=== PATIENT | female | born 1960 | race Caucasian/White ===

== ENCOUNTER 2016-11-14 10:11 | Observation (INO) | payer BC ==
[~2016-11-14 10:11] MED LIST: Buffered Lidocaine 0.9% SYRIN* 5 ML/SYR SYRINGE INTRADERM ONE; Dexamethasone TAB* 4 MG PO ONE; Famotidine IV* 10 MG/ML 2 ML (20 mg) IV ONE; Midazolam* 1 MG/ML 2 ML VIAL (2 MG) ONE; fentaNYL* 50 MCG/ML 2 ML VIAL (100 MCG VIAL) ONE
[2016-11-14] MEDS ORDERED: Famotidine IV* 10 MG/ML 2 ML (20 mg) ONE (10:21)
[2016-11-14] MEDS ORDERED: Dexamethasone IV* 4 MG/ML 1 ML (4 MG) ONE (10:21)
[2016-11-14] MEDS ORDERED: Buffered Lidocaine 0.9% SYRIN* 5 ML/SYR SYRINGE ONE (10:22)
[2016-11-14] MEDS ORDERED: ceFAZolin 2 GM PREMIX (*) 50 ML IVPB ONE (10:22)
[2016-11-14] MEDS ORDERED: Dexamethasone TAB* 4 MG ONE (10:34)
[2016-11-14] MEDS ORDERED: Cisatracurium* 2 MG/ML MDV 5 ML ONE (10:49)
[2016-11-14] MEDS ORDERED: Lidocaine 2% PF * 5 ML VIAL ONE (11:09)
[2016-11-14] MEDS ORDERED: Phenylephrine IV* 40 MCG/ML 10 ML SYRINGE ONE (11:09)
[2016-11-14] MEDS ORDERED: Propofol* 10 MG/ML 20 ML BTL IV PUSH ONE (11:09)
[2016-11-14] MEDS ORDERED: Succinylcholine* 20 MG/ML 10 ML VIAL ONE (11:09)
[2016-11-14] MEDS ORDERED: PROCHLORPERAZINE INJ 5 MG/ML 2 ML VIAL IV PRN (11:11)
[2016-11-14] MEDS ORDERED: HYDROmorphone INJ* 1 MG/ML CARPUJECT SYRINGE IV PRN (11:11)
[2016-11-14] MEDS ORDERED: fentaNYL* 50 MCG/ML 2 ML VIAL (100 MCG VIAL) IV PRN (11:11)
[2016-11-14] MEDS ORDERED: Acetaminophen TAB* 325 MG PO PRN (11:11)
[2016-11-14] MEDS ORDERED: DiMENhydriNATE IV* 50 MG/ML VIAL IV PUSH PRN (11:11)
[2016-11-14] MEDS ORDERED: Scopolamine 1.5 mg* PATCH TRANSDERM PRN (11:11)
[2016-11-14] MEDS ORDERED: Phenylephrine INJ* 50 MG in NS 0.9% 250 ML* 245 ML IV PRN (11:11)
[2016-11-14] MEDS ORDERED: Ondansetron INJ* 2 MG/ML VIAL ONE (11:19)
[2016-11-14] MEDS ORDERED: Ketorolac INJ* 30 MG/ML 1 ML VIAL ONE (11:19)
[2016-11-14] MEDS ORDERED: Ondansetron INJ* 2 MG/ML VIAL IV PRN (11:41)
[2016-11-14] MEDS ORDERED: Zolpidem TAB* 10 MG PO PRN (11:43)
[2016-11-14] MEDS ORDERED: Mouth Piece, Nicotine* 1 EACH CARTRIDGE INH PRN (11:45)
[2016-11-14] MEDS ORDERED: Nicotine Inhaler* 10 MG AMP INH PRN (11:45)
[2016-11-14] MEDS: oxyCODONE/Acetamin 5/325 MG* TAB PO PRN ×3 (14:07→22:35)
[2016-11-14] MEDS: Nicotine PATCH 21 MG/24 HR* PATCH TRANSDERM SCH (14:13)
--- NOTE | 2016-11-14 15:06 | RAD ---
INDICATION: Decompressive lumbar laminectomy L4-L5 COMPARISON: None TECHNIQUE/FINDINGS: A single crosstable lateral view shows a curved hemostat projected over the posterior soft tissues at the L4 vertebral body level with a probe projected at the L3-L4 disc space
[2016-11-14] MEDS: Insulin LISPRO* 1 UNITS UNIT SUBCUT SCH (21:31)
[2016-11-15] MEDS: oxyCODONE/Acetamin 5/325 MG* TAB PO PRN ×2 (04:06→08:15)
[2016-11-15] MEDS: Insulin LISPRO* 1 UNITS UNIT SUBCUT SCH (07:41)
--- NOTE | 2016-11-15 08:00 | PN ---
Progress Note - Progress Note Date of Service: 11/15/16 SOAP: Subjective: [S/p decompressive lumbar laminectomy L3-4, POD #1. Feeling well this morning although complains of some incisional soreness. Is ambulating independently. Denies headache, nausea, vomiting and new numbness or weakness in the lower extremities. ] Objective: [ Vital Signs: Temp Pulse Resp BP Pulse Ox 97.9 F 61 16 110/53 97 11/15/16 04:00 11/15/16 04:00 11/15/16 06:01 11/15/16 04:00 11/15/16 04:00 General: Alert and oriented. No distress. Neuro: Motor and sensory intact. Extremities: Full ROM. Incision: Intact with yeny, no swelling or infection. KATTY removed today. KATTY drain output 11/14/16 11/14/16 11/14/16 12:45 17:30 21:10 Output, KATTY #1 15 45 20 11/15/16 11/15/16 00:55 05:45 Output, KATTY #1 3 2 ] Assessment: [Satisfactory post-op course. ] Plan: [1. Discharge home today. 2. Discharge instructions discussed with the patient.
[2016-11-15] MEDS: Nicotine PATCH 21 MG/24 HR* PATCH TRANSDERM SCH (08:09)
[2016-11-15 08:39] VITALS: BP 99/53
[2016-11-15] MEDS ORDERED: BuPROPion XL* 300 MG TAB.XL PO SCH (09:00)
[2016-11-15] MEDS ORDERED: Nicotine Patch Removal NOTE PATCH OFF SCH (21:00)
[2016-11-17] MEDS ORDERED: Scopolomine PATCH Remove* 1 NOTE MISC PATCH OFF ONE (11:12)
--- NOTE | 2016-11-18 05:10 | DS ---
DISCHARGE SUMMARY: DATE OF ADMISSION: 11/14/16 DATE OF DISCHARGE: 11/15/16 ATTENDING PHYSICIAN: Dr. Cadet * (DICTATED BY MARINO MORRISON) DISCHARGE DIAGNOSES: 1. Lumbar stenosis, L4-5. 2. Diabetes, type 2. SPECIAL PROCEDURES: Decompressive lumbar laminectomy, L4-5. HOSPITAL COURSE: This 56-year-old female was seen in office with symptomatic lumbar stenosis, but has failed to improve with several years of conservative treatment. Surgical treatment was discussed with the patient and she opted for this surgery. On the day of admission, she was taken to surgery, where under general anesthesia, a decompressive lumbar laminectomy at L4-5 operation was carried out. Postoperatively, she is feeling well. Pain was well controlled with oral pain medications. She was eating, drinking, and voiding without difficulty. Preoperative pain was improved. On the first postoperative day, the KATTY wound drain was removed and the patient was discharged home to the care of family. DISCHARGE INSTRUCTIONS: Wound care and activity level were discussed with the patient and information provided. FOLLOWUP: She will be seen in office in approximately 7 to 10 days. DISCHARGE MEDICATIONS: None. MARINO MORRISON [id number]/[facility] #: [id number] [place]
--- NOTE | 2016-11-22 15:33 | OP ---
DATE OF OPERATION: 11/14/16 - ROOM #347 DATE OF : 58 SURGEON: Cyrus Cadet MD AGRONOMY RESEARCH MANAGER: MARINO Curiel ANESTHESIOLOGIST: Melissa Bosch MD ANESTHESIA: General. PRE-OP DIAGNOSIS: Lumbar spinal stenosis, L4-L5. POST-OP DIAGNOSIS: Lumbar spinal stenosis, L4-L5. OPERATIVE PROCEDURE: Decompressive lumbar laminectomy, L4-5, with bilateral foraminotomies, L4-5. DESCRIPTION OF PROCEDURE: After satisfactory general anesthesia was obtained, the patient was placed on the operating table in the prone position with the chest supported on the Derik frame and the back slightly flexed. The lumbar region was then clipped, prepped, and draped in a sterile manner for lumbar laminectomy and a skin incision outlined from L4 to L5. This incision was infiltrated with 1% Xylocaine with epinephrine, after which it was turned down sharply to the level of the lumbar fascia. The fascia was divided along the spinous processes from L4 to L5 and the paraspinal musculature stripped away from these posterior elements. An intraoperative x-ray was obtained verifying proper interspace localization, after which a decompression was carried out by removing the spinous process of L4 and the superior aspect of spinous process of L5 with the Philomena electric distribution checker and Leksell rongeur. The inferior aspect of the L4 lamina and medial aspect of the facet complex was then thinned out with the Mid[place] Bartolo drill and the decompression carried out superiorly until the attachment of ligamentum flavum was taken down. Thickened ligamentum flavum as well as hypertrophy of facet joints were then removed with the Kerrison. This was extended laterally and inferiorly until both L5 nerve roots were noted to be free in their course. After assuring adequate hemostasis, the wound was thoroughly irrigated after which a piece of Gelfoam was placed over the laminectomy defect. A drain was placed in the epidural space and tunneled out toward the left side. The fascia was then reapproximated with 0 Vicryl suture. The subcutaneous tissue was closed with 3-0 Vicryl suture and the skin closed with skin clips. The estimated blood loss was less than 50 cc, and the final sponge, padding, and needle counts were correct. The patient was taken to the recovery room, extubated, and in stable condition. [id number]/[facility] #: [id number] [facility]
== END 2016-11-15 09:20 | disposition home or self-care (01) ==
LOC: OR 10:11 → SSU 11:41
PROVIDERS: ADMIT Neurological Surgery; ATTEND Neurological Surgery
DX: M48.06 Spinal stenosis, lumbar region (principal); E11.9 Type 2 diabetes mellitus without complications; Z79.84 Long term (current) use of oral hypoglycemic drugs; M54.9 Dorsalgia, unspecified
CPT/HCPCS: 72100; 96374; 96375; A9270-GY; G0378; J0330; J0690; J1100; J1885; J2250; J2405; J2704; J3010; J8540

== ENCOUNTER 2018-07-22 10:23 | Inpatient (IN) | payer BC ==
[~2018-07-22 10:23] MED LIST changes: -Buffered Lidocaine 0.9% SYRIN* 5 ML/SYR SYRINGE INTRADERM ONE; +Buffered Lidocaine 1% SYRIN* 1 ML/SYRINGE INTRADERM ONE; -Dexamethasone TAB* 4 MG PO ONE; +Famotidine IV* 10 MG/ML 2 ML (20 mg) ONE; +Lactated Ringers 1000 ML Bag* 1,000 ML IV SCH; -Midazolam* 1 MG/ML 2 ML VIAL (2 MG) ONE; +ceFAZolin 2 GM PREMIX in ORs 2 GM/50 ML BAG ONE; -fentaNYL* 50 MCG/ML 2 ML VIAL (100 MCG VIAL) ONE
[2018-07-22] MEDS ORDERED: Propofol* 10 MG/ML 20 ML BTL ONE (11:05)
[2018-07-22] MEDS ORDERED: Phenylephrine 10 MG/ML VIAL* 1 ML VIAL ONE (11:05)
[2018-07-22] MEDS ORDERED: fentaNYL* 50 MCG/ML 2 ML VIAL (100 MCG VIAL) ONE (11:05)
[2018-07-22] MEDS ORDERED: Ondansetron INJ* 2 MG/ML VIAL ONE (11:05)
[2018-07-22] MEDS ORDERED: Dexamethasone IV* 4 MG/ML 1 ML (4 MG) ONE (11:05)
[2018-07-22] MEDS ORDERED: Lidocaine 2% PF * 5 ML VIAL ONE (11:05)
[2018-07-22] MEDS ORDERED: Midazolam* 1 MG/ML 5 ML VIAL (5 MG) ONE (11:06)
[2018-07-22] MEDS ORDERED: KETAMINE HCL* 50 MG/ML 10 ML VIAL ONE (11:06)
[2018-07-22] MEDS ORDERED: Lidocain 1% EPI 1:100,000 * 30 ML MDV ONE (11:55)
[2018-07-22] MEDS ORDERED: Thrombin 5,000 UNITS* 1 APPLIC KIT - topical use - TOPICAL ONE (11:55)
[2018-07-22] MEDS ORDERED: Bacitracin INJECTION* 50,000 UNITS ONE (11:56)
[2018-07-22] MEDS ORDERED: Cisatracurium* 2 MG/ML MDV 5 ML ONE (11:57)
[2018-07-22] MEDS ORDERED: Artificial Tear OPHTH.OINT* 3.5 GM ONE (11:57)
[2018-07-22] MEDS ORDERED: HYDROmorphone INJ1* 1 MG/ML SYRINGE ONE (15:27)
[2018-07-22] MEDS ORDERED: Ondansetron INJ* 2 MG/ML VIAL IV PRN ×2 (15:51→15:55)
[2018-07-22] MEDS ORDERED: Magnesium Hydroxide LIQ* 30 ML UDC PO PRN (15:51)
[2018-07-22] MEDS ORDERED: Naloxone* 0.4 MG/ML 1 ML VIAL IV PRN (15:55)
[2018-07-22] MEDS ORDERED: Lactated Ringers 1000 ML Bag* 1,000 ML IV SCH (16:00)
[2018-07-22] MEDS ORDERED: fentaNYL* 50 MCG/ML 5 ML VIAL (250 MCG VIAL) ONE (16:05)
[2018-07-22] MEDS: fentaNYL* 50 MCG/ML 2 ML VIAL (100 MCG VIAL) IV PRN ×5 (16:05→17:14)
[2018-07-22] MEDS ORDERED: oxyCODONE/Acetamin 5/325 MG* TAB ONE (16:57)
[2018-07-22] MEDS: oxyCODONE/Acetamin 5/325 MG* TAB PO PRN ×2 (16:57→21:00)
[2018-07-22] MEDS: Insulin LISPRO* 1 UNITS UNIT SUBCUT SCH ×2 (17:58→21:11)
[2018-07-22] MEDS: Pregabalin CAP(*) 100 MG PO SCH (21:00)
[2018-07-22] MEDS: Cyclobenzaprine TAB* 10 MG PO PRN (23:00)
[2018-07-22] MEDS: HYDROmorphone INJ1* 1 MG/ML SYRINGE IV PRN (23:45)
[2018-07-23] MEDS: oxyCODONE/Acetamin 5/325 MG* TAB PO PRN ×3 (01:24→12:13)
[2018-07-23] MEDS: HYDROmorphone INJ1* 1 MG/ML SYRINGE IV PRN ×4 (04:23→21:47)
[2018-07-23] MEDS: Pregabalin CAP(*) 100 MG PO SCH ×2 (07:44→21:47)
[2018-07-23] MEDS: Insulin LISPRO* 1 UNITS UNIT SUBCUT SCH ×4 (07:55→21:42)
--- NOTE | 2018-07-23 08:04 | PN ---
Progress Note - Progress Note Date of Service: 07/23/18 SOAP: Subjective: [S/p L4-5 decompression and fusion with interbody spacer POD #1 Feeling sore this morning. Ambulating independently. Denies lower extremity pain, numbness. Denies headache, nausea Pain controlled with PO and IV medications ] Objective: [ Vital Signs: Temp Pulse Resp BP Pulse Ox 99.1 F 61 18 106/61 95 07/23/18 07:46 07/23/18 07:46 07/23/18 07:46 07/23/18 07:46 07/23/18 07:46 General: Alert and recumbent in bed Neuro: Motor and sensory intact Wound drain output 07/22/18 07/22/18 07/23/18 17:16 21:44 01:29 Output, KATTY #1 35 80 10 07/23/18 06:12 Output, KATTY #1 40 ] Assessment: [S/p L4-5 decompression and fusion, stable. Wound drain requires further monitoring and will remain in place.] Plan: [1. Pain management 2. Encourage OOB and ambulation]
--- NOTE | 2018-07-23 10:55 | OP ---
DATE OF OPERATION: 07/22/18 - ROOM #340 DATE OF : 58 PRIMARY SURGEON: Cyrus Cadet MD. LINEWORKER: MARINO Curiel. ANESTHESIA: General. PRE-OP DIAGNOSIS: Lumbar spondylolisthesis L4-5. POST-OP DIAGNOSIS: Lumbar spondylolisthesis L4-5. OPERATIVE PROCEDURES: Redo decompressive lumbar laminectomy, L4-5 with posterior lumbar interbody fusion L4-5, placement of biomechanical device L4-5, posterior instrumentation L4-5 with stereotactic navigation and microdissection. DESCRIPTION OF PROCEDURE: After satisfactory general anesthesia was obtained, the patient was placed on the Brendan table in the prone position. The lumbar region was then clipped, prepped and draped in a sterile manner for lumbar exposure and a skin incision extended along a previous L4-5 exposure incision slightly more superiorly and inferiorly. This incision was then infiltrated with 1% Xylocaine with epinephrine, after which it was turned down sharply to the level of the fascia and scar tissue. The fascia and scar tissue were then divided along the spinous processes of L2 down to the sacrum. The spinous processes of L3, L4, and L5 had been removed at the time of her previous surgery. Utilizing the monopolar cautery and curettes, the extent of the prior decompression was dissected free. At this point of the procedure, the navigation reference array was attached to the sacrum and the O-arm intraoperative CT scan were brought into the field and a spin acquisition performed. This enabled identification of the landmarks to include the extent of the previous laminectomies. The next step of the procedure was placement of pedicle screws at L4 and L5. This was initially done only left-sided L4 where utilizing stereotactic navigation a 6.5 mm in diameter 40 mm length screw was placed at L4 on the left side. An identical screw was then placed on the right- side at L4. On the left-side at L5, a 30 mm 6.5 mm in diameter screw was placed and on the left side a 35 mm 6.5 in diameter screw was placed. Attention was then returned to the canal exposure. A plane was developed between the ligamentum flavum connecting L3 and L4 to the remaining portion of the L4 spinous process. The remaining portion of the L4 spinous process on lamina that had been left at the time of the previous decompression was then removed with a Kerrison. There was noted to be a marked scar tissue adherent to the dura. At this point of the procedure, the operating microscope was brought into the field to assist with dissecting scar from dura. Utilizing microdissection, the scar was dissected free from overlying bone. The normal dura was encountered above and below the scar tissue. This enabled identification of a plane between the scar and dura and underlying disk. The L4 nerve root was noted to be free in its course projecting out laterally. The disk was then opened with an #11 blade knife and the disk space cleared of any loose disk material using pituitary forceps and curettes. Interbody ewdin were then used in a progressive manner beginning at 7 mm and extending up to 10 mm. Following the use of the shaver, a Secure-24tronic Elevate expandable cage 8 mm in height and 23 mm in depth was sucked into the interspace under stereotactic navigation. It was then expanded up to 10 mm. The rods were then connected to the previously placed screws. A second spin was then performed with the O-arm and this spin showed that both the interbody graft and pedicle screws were in satisfactory position. The wound was then irrigated after which piece of Gelfoam was placed over the laminectomy defects. A Harrison drain was placed in the epidural space and tunneled out toward the right side. The fascia was then reapproximated with 0 Vicryl suture. The subcutaneous tissues closed with 3-0 Vicryl suture and the skin closed with skin clips. The estimated blood loss was 100 mL and final sponge, padding, and needle counts were correct. The patient was taken to the recovery room, extubated, and in stable condition. [id number]/[facility] #: [id number] [place]
[2018-07-23] MEDS: oxyCODONE TAB* 5 MG TAB PO PRN ×2 (14:59→19:46)
[2018-07-23] MEDS: Acetaminophen TAB* 325 MG PO PRN (14:59)
[2018-07-23] MEDS: Cyclobenzaprine TAB* 10 MG PO PRN (18:36)
[2018-07-24] MEDS: HYDROmorphone INJ1* 1 MG/ML SYRINGE IV PRN (03:11)
[2018-07-24] MEDS: oxyCODONE TAB* 5 MG TAB PO PRN ×4 (06:10→18:04)
[2018-07-24] MEDS: Insulin LISPRO* 1 UNITS UNIT SUBCUT SCH ×4 (07:34→20:40)
--- NOTE | 2018-07-24 07:46 | PN ---
Progress Note - Progress Note Date of Service: 07/24/18 SOAP: Subjective: [S/p L4-5 decompression and fusion with interbody spacer POD #2 Reports feeling sore this morning Was taking 30 mg Oxycontin in AM and 40 mg HS pre-op Pain controlled currently with Oxycodone and dilaudid Denies lower extremity numbness, pain Denies headache, nausea Eating and drinking well. ] Objective: [ Vital Signs: Temp Pulse Resp BP Pulse Ox 98.8 F 57 16 100/60 96 07/24/18 03:22 07/24/18 03:22 07/24/18 06:10 07/24/18 03:22 07/24/18 03:22 General: Alert, comfortable supine, NAD Neuro: Motor and sensory intact Incision: Intact, drain functioning well Wound drain output 07/22/18 07/22/18 07/23/18 17:16 21:44 01:29 Output, KATTY #1 35 80 10 07/23/18 07/23/18 07/23/18 06:12 14:22 16:59 Output, KATTY #1 40 75 20 07/23/18 07/24/18 07/24/18 22:16 03:22 06:00 Output, KATTY #1 40 40 20 ] Assessment: [Drain continues to collect large volume fluid, will remain in place. ] Plan: [1. Discontinue dilaudid 2. Add Oxycodone ER 20 mg, Oxycodone 10 mg for break through pain 3. Encourage OOB and ambulation]
[2018-07-24] MEDS: Cyclobenzaprine TAB* 10 MG PO PRN ×3 (07:59→20:43)
[2018-07-24] MEDS: Pregabalin CAP(*) 100 MG PO SCH ×2 (07:59→20:43)
[2018-07-24] MEDS: Acetaminophen TAB* 325 MG PO PRN (07:59)
[2018-07-24] MEDS: oxyCODONE SR TAB(*) 20 MG TAB.SR PO SCH (20:43)
[2018-07-25] MEDS: oxyCODONE TAB* 5 MG TAB PO PRN ×2 (00:17→07:21)
[2018-07-25 07:53] VITALS: BP 101/64
[2018-07-25] MEDS: Insulin LISPRO* 1 UNITS UNIT SUBCUT SCH (07:58)
--- NOTE | 2018-07-25 08:19 | PN ---
Progress Note - Progress Note Date of Service: 07/25/18 SOAP: Subjective: [S/p L4-5 decompression and fusion with interbody spacer, POD #3 Pain better controlled overnight after adding Oxycodone ER 20 mg Ambulating independently Denies headache, nausea ] Objective: [ Vital Signs: Temp Pulse Resp BP Pulse Ox 98.7 F 71 15 101/64 94 07/25/18 07:44 07/25/18 07:44 07/25/18 07:44 07/25/18 07:44 07/25/18 07:44 General: Alert, comfortable supine in bed Neuro: Motor and sensory intact Incision: intact with yeny. No swelling, erythema. Drain discontinued today without complication. Wound drain output 07/22/18 07/22/18 07/23/18 17:16 21:44 01:29 Output, KATTY #1 35 80 10 07/23/18 07/23/18 07/23/18 06:12 14:22 16:59 Output, KATTY #1 40 75 20 07/23/18 07/24/18 07/24/18 22:16 03:22 06:00 Output, KATTY #1 40 40 20 07/24/18 07/24/18 07/24/18 09:52 14:13 18:39 Output, KATTY #1 40 30 30 07/24/18 07/25/18 07/25/18 22:09 00:01 04:40 Output, KATTY #1 30 5 20 07/25/18 08:42 Output, KATTY #1 20 ] Assessment: [Satisfactory post-op] Plan: [1. Discharge home today 2. Discharge instructions discussed ]
[2018-07-25] MEDS: oxyCODONE SR TAB(*) 20 MG TAB.SR PO SCH (08:44)
[2018-07-25] MEDS: Pregabalin CAP(*) 100 MG PO SCH (08:44)
[2018-07-25] MEDS: Cyclobenzaprine TAB* 10 MG PO PRN (10:31)
== END 2018-07-25 11:40 | disposition home or self-care (01) | DRG 304 ==
LOC: OR 10:23 → SSU 18:26
PROVIDERS: ADMIT Neurological Surgery; ATTEND Neurological Surgery
PROC: 00NY0ZZ Release Lumbar Spinal Cord, Open Approach (ICD-10-PCS; 2018-07-22)
PROC: 0SG00AJ Fusion of Lumbar Vertebral Joint with Interbody Fusion Device, Posterior Approach, Anterior Column, Open Approach (ICD-10-PCS; principal; 2018-07-22 11:45)
DX: M43.16 Spondylolisthesis, lumbar region (principal); M47.816 Spondylosis without myelopathy or radiculopathy, lumbar region; M51.36 Other intervertebral disc degeneration, lumbar region; M48.061 Spinal stenosis, lumbar region without neurogenic claudication; F17.210 Nicotine dependence, cigarettes, uncomplicated; G89.29 Other chronic pain; E11.43 Type 2 diabetes mellitus with diabetic autonomic (poly)neuropathy; K31.84 Gastroparesis; M79.7 Fibromyalgia; G43.909 Migraine, unspecified, not intractable, without status migrainosus; Z88.5 Allergy status to narcotic agent
CPT/HCPCS: 76000; A9270-GY; C1713; C1776; C9359; J0690; J1100; J1170; J2250; J2405; J2704; J3010

== ENCOUNTER 2021-01-19 06:01 | Inpatient (IN) ==
[~2021-01-19 06:01] MED LIST changes: +Buffered Lidocaine 1% SYRIN 1 ml INTRADERM ONE; -Buffered Lidocaine 1% SYRIN* 1 ML/SYRINGE INTRADERM ONE; -Famotidine IV* 10 MG/ML 2 ML (20 mg) IV ONE; -Famotidine IV* 10 MG/ML 2 ML (20 mg) ONE; -Lactated Ringers 1000 ML Bag* 1,000 ML IV SCH; +Lactated Ringers 1000 ml BAG 1,000 ML IV SCH; -ceFAZolin 2 GM PREMIX in ORs 2 GM/50 ML BAG ONE
[2021-01-19] MEDS ORDERED: ceFAZolin 2 GM PREMIX 2 GM/50 ML BAG ONE (06:51)
[2021-01-19] MEDS ORDERED: Rocuronium 50 mg VIAL 10 mg/ml 5 ml VIAL (50 mg) ONE (06:55)
[2021-01-19] MEDS ORDERED: Propofol 10 MG/ML 20 ML BTL ONE (06:55)
[2021-01-19] MEDS ORDERED: Midazolam 2 mg/2 ml VIAL 1 mg/ml 2 ml VIAL (2 mg) ONE (06:56)
[2021-01-19] MEDS ORDERED: Remifentanil 2 MG VIAL ONE (06:56)
[2021-01-19] MEDS ORDERED: fentaNYL 100 mcg/2 ml 50 MCG/ML VIAL ONE ×3 (06:56→12:40)
[2021-01-19] MEDS ORDERED: Bupivacaine 0.5% SDV PF 30ML VIAL ONE (07:04)
[2021-01-19] MEDS ORDERED: ceFAZolin VIAL VIAL ONE (07:05)
[2021-01-19] MEDS ORDERED: Ketamine HCL 50 mg/ml 10 ml VIAL (500 MG) ONE (07:17)
[2021-01-19] MEDS ORDERED: Dexmedetomidine 200 mcg/2 ml 2 ml VIAL (200 mcg) ONE (07:17)
[2021-01-19] MEDS ORDERED: Dexamethasone IV 4 MG/ML VIAL 1 ml VIAL ONE (07:36)
[2021-01-19] MEDS ORDERED: Glycopyrrolate IV 0.2 MG/ML 1 ML VIAL ONE (08:41)
[2021-01-19] MEDS ORDERED: HYDROmorphone 1 MG/1 ML SYRINGE ONE ×4 (09:32→17:32)
[2021-01-19] MEDS ORDERED: Prochlorperazine 5 mg/ml 2 ml VIAL (10 mg) IV PRN (09:46)
[2021-01-19] MEDS ORDERED: Ondansetron 4 mg VIAL 2 MG/ML 2 ml VIAL IV PRN (09:46)
[2021-01-19] MEDS ORDERED: Naloxone 0.4 mg VIAL 0.4 mg/ml 1 ml VIAL IV PRN (09:46)
[2021-01-19] MEDS ORDERED: DiMENhydriNATE IV 50 mg/ml 1 ml VIAL IV PUSH PRN (09:46)
[2021-01-19] MEDS ORDERED: Propofol 1,000 MG/100 ML BTL ONE (10:21)
[2021-01-19] MEDS ORDERED: Ondansetron 4 mg VIAL 2 MG/ML 2 ml VIAL ONE (11:38)
[2021-01-19] MEDS ORDERED: Acetaminophen IV 1 GM/100ML 100 ML IV ONE (11:43)
[2021-01-19] MEDS: fentaNYL 100 mcg/2 ml 50 MCG/ML VIAL IV PRN ×5 (12:41→13:30)
[2021-01-19] MEDS: HYDROmorphone 1 MG/1 ML SYRINGE IV PRN ×7 (13:03→17:49)
[2021-01-19] MEDS ORDERED: HYDROmorphone 1 MG/1 ML SYRINGE IV SLOW PU ONE (13:54)
[2021-01-19] MEDS ORDERED: Lactated Ringers 1000 ml BAG 1,000 ML IV SCH (14:00)
[2021-01-19] MEDS ORDERED: fentaNYL PATCH 50 MCG/HR 1 PATCH TRANSDERM SCH (20:00)
[2021-01-19] MEDS ORDERED: Senna TAB 8.6 mg TAB PO PRN (20:03)
[2021-01-19] MEDS: HYDROmorphone 1 MG/1 ML SYRINGE IV SLOW PU PRN (22:05)
[2021-01-20] MEDS: HYDROmorphone 1 MG/1 ML SYRINGE IV SLOW PU PRN ×4 (02:59→19:03)
[2021-01-20 04:50] LABS: ABS Basophils 0.1 10^3/ul (0-0.2); ABS Lymphocytes 2.8 10^3/ul (1.0-4.8); ABS Monocytes 1.4 10^3/ul (0-0.8); ABS Neutrophils 6.4 10^3/ul (1.5-7.7); Eosinophil % 0.1 %; Hematocrit 25 % (35-47); Hemoglobin 8.2 g/dL (12.0-16.0); Lymphocyte % 26.4 %; Mean Corpuscular HGB Conc 33 g/dL (31-36); Mean Corpuscular Hemoglobin 29 pg (27-31); Mean Corpuscular Volume 88 fL (80-97); Mean Platelet Volume 7.5 fL (7.4-10.4); Platelet Count 225 10^3/uL (150-450); Red Blood Count 2.86 10^6 /uL (3.70-4.87); Red Cell Distribution Width 13 % (10-15); White Blood Count 10.8 10^3/uL (3.5-10.8)
[2021-01-20 05:17] LABS: Calcium 8.8 mg/dL (8.6-10.3); Potassium 4.8 mmol/L (3.5-5.0); eGFR CKD-EPI 32.7 (>60)
[2021-01-20] MEDS: fentaNYL Patch Check Q Shift NOTE FOLLOW UP SCH ×3 (09:55→18:45)
[2021-01-20] MEDS: Senna TAB 8.6 mg TAB PO SCH (20:13)
[2021-01-20] MEDS: Ondansetron 4 mg VIAL 2 MG/ML 2 ml VIAL IV PRN (20:22)
[2021-01-21] MEDS: HYDROmorphone 1 MG/1 ML SYRINGE IV SLOW PU PRN ×2 (03:24→07:47)
[2021-01-21] MEDS: Ondansetron 4 mg VIAL 2 MG/ML 2 ml VIAL IV PRN (03:24)
[2021-01-21 06:25] LABS: Potassium 4.5 mmol/L (3.5-5.0); eGFR CKD-EPI 37.6 (>60)
[2021-01-21] MEDS: fentaNYL Patch Check Q Shift NOTE FOLLOW UP SCH ×2 (07:29→19:07)
[2021-01-21] MEDS: Magnesium Hydroxide LIQ 30 ML UDC PO PRN ×2 (10:07→20:31)
[2021-01-21] MEDS ORDERED: Dextrose 50% Syringe 50 ml 25 GM/50 ML SYRINGE IV PUSH PRN (18:57)
[2021-01-21] MEDS: Senna TAB 8.6 mg TAB PO SCH (20:32)
[2021-01-21] MEDS ORDERED: Enoxaparin 30 MG/0.3 ML SYR SUBCUT SCH (21:00)
[2021-01-22 05:34] LABS: ABS Basophils 0.1 10^3/ul (0-0.2); ABS Eosinophils 0.1 10^3/ul (0-0.6); ABS Lymphocytes 2.4 10^3/ul (1.0-4.8); ABS Monocytes 1.1 10^3/ul (0-0.8); ABS Neutrophils 6.9 10^3/ul (1.5-7.7); Hematocrit 26 % (35-47); Hemoglobin 8.7 g/dL (12.0-16.0); Lymphocyte % 22.6 %; Mean Corpuscular HGB Conc 34 g/dL (31-36); Mean Corpuscular Hemoglobin 29 pg (27-31); Mean Corpuscular Volume 86 fL (80-97); Mean Platelet Volume 7.1 fL (7.4-10.4); Platelet Count 245 10^3/uL (150-450); Red Blood Count 2.97 10^6 /uL (3.70-4.87); Red Cell Distribution Width 13 % (10-15); White Blood Count 10.6 10^3/uL (3.5-10.8)
[2021-01-22 05:48] LABS: Anion Gap 6 mmol/L (2-11); Blood Urea Nitrogen 18 mg/dL (6-24); CO2 Carbon Dioxide 31 mmol/L (22-32); Chloride 100 mmol/L (101-111); Glucose 120 mg/dL (70-100); Sodium 137 mmol/L (135-145); eGFR CKD-EPI 43.2 (>60)
[2021-01-22 06:30] LABS: Folate > 20.00 ng/mL (5.90-24.80); Vitamin B12 526 pg/mL (180-914)
[2021-01-22] MEDS: fentaNYL Patch Check Q Shift NOTE FOLLOW UP SCH (09:30)
[2021-01-22 16:03] VITALS: BP 149/91
[2021-01-25 17:44] LABS: % Iron Saturation 10 % (14 - 50); Iron 21 mcg/dL (35 - 145); Total Iron Binding Capacity 201 mcg/dL (250 - 400); Transferrin 170 mg/dL (200 - 360)
== END 2021-01-22 16:43 | disposition home or self-care (01) | DRG 304 ==
LOC: AA 06:01 → ICU 18:10 → SSU 01-20 10:20
PROVIDERS: ADMIT Neurological Surgery; ATTEND Neurological Surgery